=== PATIENT | female | born 1970 | race African-American/Black ===

== ENCOUNTER 2018-12-30 09:28 | Day surgery (SDC) | payer OTHER ==
[2018-12-30] MEDS ORDERED: FENTAnyl 50 MCG/ML VIAL (11:48)
[2018-12-30] MEDS ORDERED: MIDAZOLAM 1 MG/ML 2 ML INJ ×3 (11:49)
== END 2018-12-30 14:54 | disposition home or self-care (01) ==
LOC: GIL 09:28
DX: Z12.11 Encounter for screening for malignant neoplasm of colon (principal); D12.0 Benign neoplasm of cecum; D12.5 Benign neoplasm of sigmoid colon; K64.4 Residual hemorrhoidal skin tags
CPT/HCPCS: 45380; 88305